=== PATIENT | male | born 1975 ===

== ENCOUNTER → 2019-03-10 | Outpatient (CLI) | payer MEDICAID ==
--- NOTE | 2019-03-10 10:44 | RADIOLOGY IMAGING REPORT ---
FACILITY: [facility] [place] PATIENT NAME: Pipo Manning : 1975 MR: [id number] V: [id number] EXAM DATE: ORDERING PHYSICIAN: VAN SAMUEL TECHNOLOGIST: Location: [facility] Patient: Pipo Manning : 1975 Visit/Account:[id number] Date of Sevice: 03/10/2019 Technique: ANKLE 2 VIEW LEFT HISTORY: Ankle sprain Comparison studies: None FINDINGS: There is no acute fracture. Small ossific densities are seen adjacent to the medial malleo yifan, lateral malleolus and posterior to the tibiotalar joint. These likely represent the sequela of previous avulsion injury versus loose bodies. The ankle mortise is preserved. No ankle joint effusi on. Small calcaneal spur is incidentally noted. IMPRESSION: 1. No acute osseous process. 2. Chronic findings as above. Report Dictated By: Jose C Rose DO at 03/10/2019 10:20 AM Report E-Signed By: Jose C Rose DO at 03/10/2019 10:39 AM WSN:[id number]
== END ==
LOC: RAD 09:58
PROVIDERS: ATTEND Internal Medicine
DX: M77.32 Calcaneal spur, left foot (principal)